=== PATIENT | female | born 1965 | race Caucasian/White ===

== ENCOUNTER 2019-03-28 19:49 | Emergency (ER) | payer BC ==
[2019-03-28] MEDS ORDERED: SODIUM CHLORIDE 0.9% 500 ML 500 ML IV STA (19:52)
--- NOTE | 2019-03-28 19:58 | ED ---
General Adult HPI - General Stated complaint: Weakness Time Seen by Provider: 03/28/19 19:52 Source: patient, EMS, RN notes reviewed, old records reviewed - History of Present Illness Initial comments: 53-year-old female presents for evaluation suspected syncopal episode history is obtained from EMS, patient, and the patient's daughters who are at bedside. Patient began feeling lightheaded, she had momentary loss consciousness lasting 1-2 minutes. There was no reported seizure activity. No postictal period. By the time EMS arrived which was approximately 6 minutes after the initial call the patient was awake and alert although slow to respond. She is complaining of generalized weakness and numbness in all 4 extremities. She had some nausea and states she feels that she has to have a bowel movement. There is no preceding symptoms. No palpitations or chest pain. Blood sugar and vital signs were checked by EMS and within normal limits. Patient has no cardiac history. She has been eating and drinking normally. There is no preceding vomiting or diarrhea. No concern for dehydration. - Related Data Home Medications Medication Instructions Recorded Confirmed Calcium Carbonate [Calcium] 600 mg PO HS 03/28/19 03/28/19 Multivitamin [Multivitamins Adult 2 tab PO HS 03/28/19 03/28/19 Gummies] [place]-3 Fatty Acids [[place]-3] 1,000 mg PO HS 03/28/19 03/28/19 Omeprazole 40 mg PO QA 03/28/19 03/28/19 Polyethylene Glycol 3350 [Miralax] 17 gm PO HS 03/28/19 03/28/19 Allergies Allergy/AdvReac Type Severity Reaction Status Date / Time butorphanol [From Stadol] AdvReac Nausea & Verified 03/28/19 21:02 Vomiting meperidine [From Demerol] AdvReac Nausea & Verified 03/28/19 21:02 Vomiting morphine AdvReac Nausea & Verified 03/28/19 21:02 Vomiting Review of Systems ROS Statement: Those systems with pertinent positive or pertinent negative responses have been documented in the HPI. ROS Other: All systems not noted in ROS Statement are negative. General Exam General appearance: alert, in no apparent distress Head exam: Present: atraumatic, normocephalic Eye exam: Present: normal appearance, PERRL, EOMI ENT exam: Present: normal exam Neck exam: Present: normal inspection. Absent: tenderness, meningismus Respiratory exam: Present: normal lung sounds bilaterally. Absent: respiratory distress, wheezes Cardiovascular Exam: Present: regular rate, normal rhythm GI/Abdominal exam: Present: soft. Absent: distended, tenderness, guarding, rebound Extremities exam: Present: normal inspection, normal capillary refill. Absent: pedal edema, calf tenderness Neurological exam: Present: alert, oriented X3, CN II-XII intact. Absent: motor sensory deficit (Extremities symmetric movement) Skin exam: Present: warm, dry, intact. Absent: cyanosis, diaphoretic Course Vital Signs 03/28/19 03/28/19 03/28/19 19:51 21:04 22:09 Temperature 97.3 F L Pulse Rate 77 60 Pulse Rate [ 73 Sitting Mechanical Lead] Pulse Rate [ 80 Standing Mechanical Lead ] Pulse Rate [ 70 Supine Mechanical Lead] Respiratory 19 18 Rate Blood Pressure 128/77 115/60 Blood Pressure 117/64 [Right Arm Sitting] Blood Pressure 120/96 [Right Arm Standing] Blood Pressure 121/64 [Right Arm Supine] O2 Sat by Pulse 100 100 Oximetry EKG Findings - EKG Comments: EKG Findings:: EKG: Sinus rhythm with short LA, baseline artifact, no definitive signs of ischemia, rate of 66, LA interval 102, QRS duration 80, QTC [address] segment elevation Medical Decision Making - Medical Decision Making 53-year-old female presenting with syncopal episode. Further history from patient and her daughters indicate that she has been eating very little, not hydrated and his had significant stress in her life. She's been attempting to eliminate carbohydrates and been eating very small meals. After IV hydration patient is feeling significantly better. She was not orthostatic. She has normal CBC, normal CMP, normal troponin, negative d-dimer. Sinus EKG. Chest x- ray negative for acute cardiac program disease. Head CT is negative for intracranial hemorrhage. Urinalysis does show 1+ ketones consistent with dehydration. Patient is encouraged to maintain oral hydration, increase her caloric intake. She will follow-up with her primary care physician. - Lab Data Result diagrams: 03/28/19 20:14 03/28/19 20:14 Lab Results 03/28/19 03/28/19 03/28/19 Range/Units 20:12 20:14 20:14 WBC 5.4 (3.8-10.6) k/uL RBC 4.70 (3.80-5.40) m/uL Hgb 13.9 (11.4-16.0) gm/dL Hct 41.4 (34.0-46.0) % MCV 87.9 (80.0-100.0) fL MCH 29.6 (25.0-35.0) pg MCHC 33.7 (31.0-37.0) g/dL RDW 14.0 (11.5-15.5) % Plt Count 206 (150-450) k/uL Neutrophils % 67 % Lymphocytes % 23 % Monocytes % 5 % Eosinophils % 3 % Basophils % 0 % Neutrophils # 3.6 (1.3-7.7) k/uL Lymphocytes # 1.2 (1.0-4.8) k/uL Monocytes # 0.3 (0-1.0) k/uL Eosinophils # 0.1 (0-0.7) k/uL Basophils # 0.0 (0-0.2) k/uL PT (9.0-12.0) sec INR (<1.2) APTT (22.0-30.0) sec D-Dimer (<0.60) mg/L FEU Sodium 140 (137-145) mmol/L Potassium 3.8 (3.5-5.1) mmol/L Chloride 106 (98-107) mmol/L Carbon Dioxide 22 (22-30) mmol/L Anion Gap 12 mmol/L BUN 14 (7-17) mg/dL Creatinine 0.67 (0.52-1.04) mg/dL Est GFR (CKD-EPI)AfAm >90 (>60 ml/min/1.73 sqM) Est GFR (CKD-EPI)NonAf >90 (>60 ml/min/1.73 sqM) Glucose 147 H (74-99) mg/dL POC Glucose (mg/dL) 131 H (75-99) mg/dL POC Glu Poultry [employer] Meat ID Rivera, Nciolasa Calcium 10.4 H (8.4-10.2) mg/dL Magnesium 1.8 (1.6-2.3) mg/dL Total Bilirubin 0.5 (0.2-1.3) mg/dL AST 20 (14-36) U/L ALT 21 (9-52) U/L Alkaline Phosphatase 104 (38-126) U/L Troponin I (0.000-0.034) ng/mL Total Protein 7.8 (6.3-8.2) g/dL Albumin 4.8 (3.5-5.0) g/dL Urine Color Urine Appearance (Clear) Urine pH (5.0-8.0) Ur Specific [place] (1.001-1.035) Urine Protein (Negative) Urine Glucose (UA) (Negative) Urine Ketones (Negative) Urine Blood (Negative) Urine Nitrite (Negative) Urine Bilirubin (Negative) Urine Urobilinogen (<2.0) mg/dL Ur Leukocyte Esterase (Negative) 03/28/19 03/28/19 03/28/19 Range/Units 20:14 20:14 22:50 WBC (3.8-10.6) k/uL RBC (3.80-5.40) m/uL Hgb (11.4-16.0) gm/dL Hct (34.0-46.0) % MCV (80.0-100.0) fL MCH (25.0-35.0) pg MCHC (31.0-37.0) g/dL RDW (11.5-15.5) % Plt Count (150-450) k/uL Neutrophils % % Lymphocytes % % Monocytes % % Eosinophils % % Basophils % % Neutrophils # (1.3-7.7) k/uL Lymphocytes # (1.0-4.8) k/uL Monocytes # (0-1.0) k/uL Eosinophils # (0-0.7) k/uL Basophils # (0-0.2) k/uL PT 10.0 (9.0-12.0) sec INR 0.9 (<1.2) APTT 22.2 (22.0-30.0) sec D-Dimer 0.27 (<0.60) mg/L FEU Sodium (137-145) mmol/L Potassium (3.5-5.1) mmol/L Chloride (98-107) mmol/L Carbon Dioxide (22-30) mmol/L Anion Gap mmol/L BUN (7-17) mg/dL Creatinine (0.52-1.04) mg/dL Est GFR (CKD-EPI)AfAm (>60 ml/min/1.73 sqM) Est GFR (CKD-EPI)NonAf (>60 ml/min/1.73 sqM) Glucose (74-99) mg/dL POC Glucose (mg/dL) (75-99) mg/dL POC Glu P[employer] Meat ID Calcium (8.4-10.2) mg/dL Magnesium (1.6-2.3) mg/dL Total Bilirubin (0.2-1.3) mg/dL AST (14-36) U/L ALT (9-52) U/L Alkaline Phosphatase (38-126) U/L Troponin I <0.012 (0.000-0.034) ng/mL Total Protein (6.3-8.2) g/dL Albumin (3.5-5.0) g/dL Urine Color Yellow Urine Appearance Clear (Clear) Urine pH 8.5 H (5.0-8.0) Ur Specific [place] 1.014 (1.001-1.035) Urine Protein Negative (Negative) Urine Glucose (UA) Negative (Negative) Urine Ketones 1+ H (Negative) Urine Blood Negative (Negative) Urine Nitrite Negative (Negative) Urine Bilirubin Negative (Negative) Urine Urobilinogen <2.0 (<2.0) mg/dL Ur Leukocyte Esterase Negative (Negative) Disposition Clinical Impression: Dehydration, Syncope Disposition: HOME SELF-CARE Condition: Good Instructions (If sedation given, give patient instructions): Syncope (ED), Dehydration (ED) Additional Instructions: Please follow up with her primary care physician, please maintain hydration. Is patient prescribed a controlled substance at d/c from ED?: No Referrals: Nonstaff,Physician [Primary Care Provider] - 1-2 days Time of Disposition: 23:41
[2019-03-28 20:14] LABS: Glucose,Whole Blood 131 mg/dL (75-99)
[2019-03-28 20:32] LABS: Basophils % (A) 0 %; Eosinophils # (A) 0.1 k/uL (0-0.7); Eosinophils % (A) 3 %; HCT 41.4 % (34.0-46.0); HGB 13.9 gm/dL (11.4-16.0); Lymphocytes # (A) 1.2 k/uL (1.0-4.8); Lymphocytes % (A) 23 %; MCH 29.6 pg (25.0-35.0); MCHC 33.7 g/dL (31.0-37.0); MCV 87.9 fL (80.0-100.0); Mean Platelet Volume 7.7; Monocytes # (A) 0.3 k/uL (0-1.0); Monocytes % (A) 5 %; Neutrophils # (A) 3.6 k/uL (1.3-7.7); Neutrophils % (A) 67 %; Platelet Count 206 k/uL (150-450); WBC 5.4 k/uL (3.8-10.6)
[2019-03-28 20:44] LABS: ALT 21 U/L (9-52); AST 20 U/L (14-36); Albumin 4.8 g/dL (3.5-5.0); Alkaline Phosphatase 104 U/L (38-126); Anion Gap 12 mmol/L; Blood Urea Nitrogen 14 mg/dL (7-17); Calcium 10.4 mg/dL (8.4-10.2); Carbon Dioxide 22 mmol/L (22-30); Chloride 106 mmol/L (98-107); Glucose 147 mg/dL (74-99); Magnesium 1.8 mg/dL (1.6-2.3); Potassium 3.8 mmol/L (3.5-5.1); Sodium 140 mmol/L (137-145); Total Bilirubin 0.5 mg/dL (0.2-1.3); Total Protein 7.8 g/dL (6.3-8.2)
[2019-03-28 20:50] LABS: INR 0.9 (<1.2)
[2019-03-28 20:51] LABS: D-Dimer 0.27 mg/L FEU (<0.60); Partial Thromboplastin Time 22.2 sec (22.0-30.0)
[2019-03-28 21:07] VITALS: RESP 18
[2019-03-28] MEDS ORDERED: SODIUM CHLORIDE 0.9% 500 ML 500 ML IV ONE ×2 (21:08→22:55)
--- NOTE | 2019-03-28 21:17 | CT ---
EXAMINATION TYPE: CT brain wo con DATE OF EXAM: 03/28/2019 COMPARISON: HISTORY: Pt had syncope episode w/ LOC CT DLP: 1083.4 mGycm Automated exposure control for dose reduction was used. FINDINGS: Ventricles have normal size. There is no mass effect nor midline shift. There is no sign of intracran ial hemorrhage. The calvarium is intact. IMPRESSION: NEGATIVE CT SCAN OF THE BRAIN.
--- NOTE | 2019-03-28 21:17 | XR ---
EXAMINATION TYPE: XR chest 2V DATE OF EXAM: 03/28/2019 COMPARISON: NONE HISTORY: Weakness TECHNIQUE: Frontal and lateral views of the chest are obtained. FINDINGS: Heart and mediastinum are normal. Lungs are clear. Diaphragm is normal. Bony thorax is int act. Pulmonary vascularity is normal. There are chest leads. IMPRESSION: Normal chest.
[2019-03-28 22:25] VITALS: PULSE 70
[2019-03-28] MEDS ORDERED: ONDANSETRON 4 MG/2 ML VIAL IVP STA (22:55)
[2019-03-28 23:00] LABS: Appearance,Urine Clear (Clear); Bilirubin,Urine Negative (Negative); Blood,Urine Negative (Negative); Color,Urine Yellow; Glucose,Urine (UA) Negative (Negative); Ketones,Urine 1+ (Negative); Leukocyte Esterase,Urine Negative (Negative); Nitrite,Urine Negative (Negative); PH, Urine 8.5 (5.0-8.0); Protein,Urine Negative (Negative); Specific Gravity,Urine 1.014 (1.001-1.035); Urobilinogen,Urine <2.0 mg/dL (<2.0)
[2019-03-29 00:10] VITALS: BP 119/78; TEMP 98
== END 2019-03-29 | disposition home or self-care (01) ==
LOC: EC 19:49
DX: E86.0 Dehydration (principal); R55 Syncope and collapse; R11.0 Nausea; Z79.899 Other long term (current) drug therapy; Z88.5 Allergy status to narcotic agent; Z88.8 Allergy status to other drugs, medicaments and biological substances
CPT/HCPCS: 36415; 93005; 85379; 80053; 83735; 84484; 85025; 85610; 85730; 81003; 71046; 70450; 99285; 96374; 96361 ×2; J2405